=== PATIENT | female | born 1945 | race Hispanic/Latino ===

== ENCOUNTER 2017-10-04 06:26 | Day surgery (SDC) | payer MEDICARE, BC ==
[2017-10-04 06:59] VITALS: BMI 24.1
[2017-10-04] MEDS ORDERED: Propofol 10 mg/ml Inj (20 ML) ONE (08:06)
--- NOTE | 2017-10-04 08:12 | CP.SDSHP ---
Same Day Surgery H & P - History Proposed Procedure: colonoscopy Pre-Op Diagnosis: screen - Previous Medical/Surgical History Cardiac: Hypertension - Allergies Allergies: Allergies No Known Allergies Allergy (Verified 10/04/17 06:59) - Physical Exam Vital Signs: Vital Signs 10/04/17 07:32 Temperature 98.2 F Pulse Rate 80 Respiratory 20 Rate Blood Pressure 153/63 H O2 Sat by Pulse 99 Oximetry Mental Status: Alert & Oriented x3 Neuro: WNL Heart: WNL Lungs: WNL GI: WNL - {Optional Preform as Required} Abdomen: WNL - Impression Impression: screen Pt. Evaluated Today:Candidate for Anesthesia & Procedure: Yes - Date & Time Date: 10/04/17 Time: 08:12 Short Stay Discharge - Short Stay Discharge Admitting Diagnosis/Reason for Visit: SCREENING Disposition: HOME/ ROUTINE
[2017-10-04 09:40] VITALS: TEMP 97
[2017-10-04 09:49] VITALS: RESP 20
[2017-10-04 09:50] VITALS: O2SAT 98
[2017-10-04 09:54] VITALS: BP 125/68; PULSE 88
== END 2017-10-04 09:54 | disposition home or self-care (01) ==
LOC: C.ENDO 06:26
PROVIDERS: ATTEND Internal Medicine Gastroenterology
DX: Z12.11 Encounter for screening for malignant neoplasm of colon (principal); K57.30 Diverticulosis of large intestine without perforation or abscess without bleeding; D12.2 Benign neoplasm of ascending colon; D12.0 Benign neoplasm of cecum; D12.4 Benign neoplasm of descending colon; D12.5 Benign neoplasm of sigmoid colon; D12.8 Benign neoplasm of rectum; K64.8 Other hemorrhoids
CPT/HCPCS: 45380; 45385; 88305; J2704

== ENCOUNTER 2018-11-29 06:07 | Inpatient (IN) | payer MEDICARE, BC ==
[2018-11-29] MEDS ORDERED: Albuterol-Ipratrop 3 mg / 0.5 (3 ml) UD ONE ×2 (06:28→07:34)
[2018-11-29] MEDS ORDERED: Albuterol-Ipratrop 3 mg / 0.5 (3 ml) UD INH STA ×2 (06:28→07:24)
[2018-11-29 06:29] VITALS: BMI 27.4
[2018-11-29] MEDS ORDERED: cefTRIAXone IV 1 gm in Dextros 50 ML IV ONE (06:29)
[2018-11-29] MEDS ORDERED: Azithromycin 500 MG in Sodium Chloride 0.9% 250 ML IV STA (06:30)
--- NOTE | 2018-11-29 06:35 | C.PDOC ---
History Of Present Illness 73 year old female presents to the ER with a complaint of SOB and wheezing for the past 3 days. Patient used nebulizer machine at home, she gave herself three treatments, one amp each. She has a Hx of COPD, still smoking half a pack a day. Denies fever or chest pain. Time Seen by Provider: 11/29/18 06:20 Chief Complaint (Nursing): Respiratory Distress History Per: Patient History/Exam Limitations: no limitations Onset/Duration Of Symptoms: Days (3) Current Symptoms Are (Timing): Still Present Current Respiratory Medications: See Home Med List Associated Symptoms: Other (SOB, Wheezing). denies: Fever, Chest Pain Recent travel outside of the [place]: No Past Medical History Reviewed: Historical Data, Nursing Documentation, Vital Signs Vital Signs: Last Vital Signs Temp Pulse Resp 33 H 11/29/18 06:29 BP Pulse Ox - Medical History PMH: Arthritis, Colonic Polyps, COPD, Fibromyalgia, HTN, Hypothyroidism, Osteoporosis Denies: Fractures, TIA Surgical History: Denies: Endoscopy, Pacemaker - [facility] Procedures ANGIOPLASTY OF OTHER NON-CORONARY VESSEL(S) (11/26/14) CONTRAST PHLEBOGRAM-LEG (11/26/14) PROCEDURE ON SINGLE VESSEL (11/26/14) Family History: States: Unknown Family Hx - Social History Hx Alcohol Use: Yes Hx Substance Use: Yes Review Of Systems Constitutional: Negative for: Fever, Chills Cardiovascular: Negative for: Chest Pain, Palpitations Respiratory: Positive for: Shortness of Breath, Wheezing Gastrointestinal: Negative for: Nausea, Vomiting Genitourinary: Negative for: Dysuria, Hematuria Neurological: Negative for: Weakness, Numbness Physical Exam - Physical Exam Appears: Other (Moderate respiratory distress, Obese white female) Skin: Normal Color, Warm, Dry Head: Atraumatic, Normacephalic Eye(s): bilateral: Normal Inspection Oral Mucosa: Moist Neck: Normal, Supple Chest: Symmetrical, No Tenderness Cardiovascular: Rhythm Regular Respiratory: No Rales, Rhonchi (Scattered), Wheezing (Scattered), Other (Moderate air movement) Gastrointestinal/Abdominal: Soft, No Tenderness Back: No CVA Tenderness Extremity: Other (No edema of lower extremities) Neurological/Psych: Oriented x3, Normal Speech ED Course And Treatment - Laboratory Results Result Diagrams: 11/29/18 06:44 11/29/18 06:44 Lab Interpretation: Normal (not L shifted) ECG: Interpreted By Me ECG Rhythm: Sinus Tachycardia ECG Interpretation: Abnormal Rate From EC Pulse Ox Interpretation: Abnormal - Radiology CXR: Interpreted by Me CXR Interpretation: Yes: No Acute Disease Reevaluation Time: : Reassessment Condition: Improved - Physician Consult Information Outcome Of Conversation: 719 d/w eliu Rivas to admit Medical Decision Making Medical Decision Making: copd exacerbation Disposition Doctor Will See Patient In The: Hospital Counseled Patient/Family Regarding: Studies Performed, Diagnosis - Disposition Disposition: HOSPITALIZED Disposition Time: : Condition: FAIR Forms: [place] (Romansh) - Clinical Impression Clinical Impression: COPD exacerbation - Scribe Statement The provider has reviewed the documentation as recorded by the Scribe Marco A Ren All medical record entries made by the Scribe were at my direction and personally dictated by me. I have reviewed the chart and agree that the record accurately reflects my personal performance of the history, physical exam, medical decision making, and the department course for this patient. I have also personally directed, reviewed, and agree with the discharge instructions and disposition. Physician Patient Turnover Patient Signed Over To: Tra Bazzi Handoff Comments: follow-up workup and adm to Dr. Chatterjee
[2018-11-29 06:59] LABS: BASO # 0.1 K/uL (0.0-0.2); BASO % 0.6 % (0.0-2.0); EOS # 0.2 K/uL (0.0-0.7); EOS % 1.8 % (0.0-4.0); HEMOGLOBIN 13.5 g/dL (11.0-16.0); LYMPH # 1.5 K/uL (1.0-4.3); LYMPH % 13.9 % (20.0-40.0); MEAN CELL VOLUME 98.3 fL (81.0-99.0); MEAN CORPUSCULAR HEMOGLOBIN 33.3 pg (27.0-31.0); MEAN CORPUSCULAR HGB CONC 33.9 g/dL (33.0-37.0); MEAN PLATELET VOLUME 8.4 fL (7.2-11.7); MONO # 1.4 K/uL (0.0-0.8); MONO % 13.1 % (0.0-10.0); NEUT # 7.8 K/uL (1.8-7.0); NEUT % 70.6 % (50.0-75.0); RBC 4.05 Mil/uL (3.80-5.20); RED CELL DISTRIBUTION WIDTH 12.6 % (11.5-14.5)
[2018-11-29 07:07] LABS: ALB/GLOB RATIO 1.6 (1.0-2.1); ALBUMIN 4.4 g/dL (3.5-5.0); ALT/SGPT 22 U/L (9-52); AST/SGOT 25 U/L (14-36); BLOOD UREA NITROGEN 19 mg/dL (7-17); CALCIUM 8.9 mg/dl (8.6-10.4); GFR NON-AFRICAN AMERICAN > 60
[2018-11-29] MEDS ORDERED: Azithromycin 500mg/250ML NS 500 MG/250 ML BAG IVPB ONE (07:29)
[2018-11-29 07:51] LABS: PARTIAL THROMBOPLASTIN TIME 23 SECONDS (21-34); PROTHROMBIN TIME 11.1 SECONDS (9.7-12.2)
[2018-11-29 07:59] LABS: D DIMER < 200 ng/mlDDU (0-243)
--- NOTE | 2018-11-29 08:45 | CP.PCM.HP ---
History of Present Illness - History of Present Illness History of Present Illness: Chief complaint: Severe shortness of breath HPI: 73-year-old female with history of chronic lower back pain, cervical spinal surgery, history of rheumatoid arthritis, lupus, fibromyalgia, hypertension, history of COPD came to the emergency room with severe shortness of breath last night. Patient started having symptoms are mostly 3-4 days duration, initially with minimal cough, gradually got worse, cough with a thick yellow mucus production, yesterday started having more amount of mucus secretion with thick yellow discoloration. Patient did not have any hemoptysis. Last night the patient was not able to breathe well, she usually checks oxygen in the house, and last night the oxygen saturation went down to 83, and she called immediately ambulance, brought to the [facility] emergency room. In the emergency room patient was initially evaluated, placed on oxygen, nebulizer, and multiple episodes of nebulizer was given and a high flow oxygen was started. Currently patient is able to complete a sentence, she is feeling much better. Oxygen saturation is better. Cough is still noted. Wheezing present. She did not have any fever or chills. She recently has no sick exposure Patient still continues to smoke. 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 Almost 1 pack/day. Denies any alcohol. Patient lives with the and mostly functional and good functional capacity Surgical history includes: Patient had a cervical surgery spinal surgery recently, history of left iliac vein angioplasty. Also bilateral cataract surgery. Review of system: Patient is currently having no headache no visual symptoms. Complaining of increasing cough. Chest pain with cough noted. Mucus production present. Shortness of breath noted. No nausea no vomiting. Denies any leg swelling On examination: Vital signs reviewed Tachycardia noted. Chest bilateral diffuse rhonchi and wheezing noted, decreased air entry in the lower lung hdz noted tachycardia noted Abdomen soft nontender no pedal edema Labs reviewed Nonspecific. Chest x-ray hyperinflated lung hdz, no infiltration noted Blood gas analysis reviewed Assessment and recommendation: Patient is a 73-year-old female with a history of cervical spinal surgery, chronic lower back pain, history of rheumatoid arthritis lupus, fibromyalgia hypertension and COPD admitted now with acute exacerbation of COPD. Patient also has worsening bronchitis at this time. Failed outpatient treatment. Recommended high flow oxygen. Inhaled corticosteroid. Antibiotic. DVT and GI prophylaxis and will follow the patient. I educated the patient regarding the smoking cessation. Present on Admission - Present on Admission Any Indicators Present on Admission: No History of DVT/PE: No History of Uncontrolled Diabetes: No Urinary Catheter: No Decubitus Ulcer Present: No Past Patient History - Past Medical History & Family History Past Medical History?: Yes - Past Social History Smoking Status: Light Smoker < 10 Cigarettes Daily - CARDIAC Hx Hypertension: Yes Hx Pacemaker: No - PULMONARY Hx Chronic Obstructive Pulmonary Disease (COPD): Yes - NEUROLOGICAL Hx Transient Ischemic Attacks (TIA): No - HEENT Hx HEENT Problems: Yes Hx Cataracts: Yes Other/Comment: CHRONIC SINUSITIS - ENDOCRINE/METABOLIC Hx Hypothyroidism: Yes - HEMATOLOGICAL/ONCOLOGICAL Hx Blood Transfusions: No - INTEGUMENTARY Hx Dermatological Problems: Yes Hx Eczema: Yes - MUSCULOSKELETAL/RHEUMATOLOGICAL Hx Arthritis: Yes Hx Fractures: No Hx Osteoporosis: Yes - GASTROINTESTINAL Hx Gastrointestinal Disorders: Yes Hx Diverticulitis: Yes Hx Gastroesophageal Reflux: Yes - PSYCHIATRIC Hx Substance Use: Yes - SURGICAL HISTORY Hx Surgeries: Yes Hx Cataract Extraction: Yes (RIGHT AND LEFT) Hx Musculoskeletal Surgery: Yes (CERVICAL SPINAL FUSION 2014) Hx Orthopedic Surgery: Yes (LEFT ROTATOR CUFF FOR TEAR 2015) Other/Comment: 2 Titanium steel zoe toC3-7 area - ANESTHESIA Hx Anesthesia: Yes Hx Anesthesia Reactions: No Hx Malignant Hyperthermia: No Meds Allergies/Adverse Reactions: Allergies Allergy/AdvReac Type Severity Reaction Status Date / Time No Known Allergies Allergy Verified 10/04/17 06:59 Results - Vital Signs Recent Vital Signs: Last Vital Signs Temp 98.8 F 11/29/18 08:15 Pulse 128 H 11/29/18 08:15 Resp 20 11/29/18 08:15 BP 145/68 11/29/18 08:15 Pulse Ox 100 11/29/18 08:15 - Labs Result Diagrams: 11/29/18 06:44 11/29/18 06:44 Labs: Laboratory Results - last 24 hr 11/29/18 11/29/18 11/29/18 06:44 06:44 07:26 WBC 11.0 H RBC 4.05 Hgb 13.5 Hct 39.8 MCV 98.3 MCH 33.3 H MCHC 33.9 RDW 12.6 Plt Count 208 MPV 8.4 Neut % (Auto) 70.6 Lymph % (Auto) 13.9 L [place] % (Auto) 13.1 H Eos % (Auto) 1.8 Baso % (Auto) 0.6 Neut # (Auto) 7.8 H Lymph # (Auto) 1.5 [place] # (Auto) 1.4 H Eos # (Auto) 0.2 Baso # (Auto) 0.1 PT 11.1 INR 1.0 APTT 23 D-Dimer, Quantitative < 200 Sodium 135 Potassium 3.7 Chloride 101 Carbon Dioxide 26 Anion Gap 12 BUN 19 H Creatinine 0.7 Est GFR ( Amer) > 60 Est GFR (Non-Af Amer) > 60 Random Glucose 108 H Calcium 8.9 Total Bilirubin 0.4 AST 25 ALT 22 Alkaline Phosphatase 94 Troponin I < 0.0120 NT-Pro-B Natriuret Pep 78.0 Total Protein 7.1 Albumin 4.4 Globulin 2.7 Albumin/Globulin Ratio 1.6
[2018-11-29] MEDS ORDERED: Fluticasone-Vilanterol 100/25mcg Diskus INH PRN (08:55)
[2018-11-29] MEDS ORDERED: Home Med 1 UNIT (Meloxicam [Mobic] 15 MG) PO PRN (08:55)
[2018-11-29 08:58] LABS: SQUAMOUS EPITHIAL 11 /hpf (0-5); URINE BACTERIA RARE (<OCC); URINE BILIRUBIN NEGATIVE (NEGATIVE); URINE BLOOD NEGATIVE (NEGATIVE); URINE CLARITY Clear (Clear); URINE COLOR Yellow (YELLOW); URINE GLUCOSE (UA) NORMAL (Normal); URINE LEUKOCYTE ESTERASE TRACE Leu/uL (Negative); URINE PROTEIN NEGATIVE (NEGATIVE); URINE UROBILINOGEN NORMAL mg/dL (0.2-1.0)
--- NOTE | 2018-11-29 09:59 | RAD ---
Date of service: 11/29/2018 PROCEDURE: CHEST RADIOGRAPH, 1 VIEW HISTORY: SOB COMPARISON: 02/22/2015. FINDINGS: LUNGS: The lungs are well inflated and clear. PLEURA: No pneumothorax or pleural effusion. CARDIOVASCULAR: The heart is normal in size. No aortic atherosclerotic calcifications present. OSSEOUS STRUCTURES: Within normal limits for the patient's age. VISUALIZED UPPER ABDOMEN: Normal. OTHER FINDINGS: None. IMPRESSION: No active pulmonary disease.
[2018-11-29] MEDS: Pantoprazole 40 mg EC Tab PO SCH (10:57)
[2018-11-29] MEDS: Enoxaparin 40 mg Syringe SC SCH (10:58)
--- NOTE | 2018-11-29 11:06 | CT ---
Date of service: 11/29/2018 PROCEDURE: CT Chest without contrast HISTORY: PNA COMPARISON: Comparison chest dated 11/29/2018. Comparison also made with prior CT chest dated wall 03/31/2015. TECHNIQUE: Contiguous axial images were obtained through the chest without intravenous contrast enhancement. Sagittal and coronal reconstructions were performed. Radiation dose: Total exam DLP = 407.99 mGy-cm.. This CT exam was performed using one or more of the following dose reduction techniques: Automated exposure control, adjustment of the mA and/or kV according to patient size, and/or use of iterative reconstruction technique. FINDINGS: LUNGS: Redemonstrated is a small approximately 2.16 x 2.5 cm cavitary lesion with a small eccentrically located elliptical shaped nodule at measures approximately 8.5 x 6.5 cm mm. Findings consistent with an aspergilloma. This lesion is stable in appearance when compared with the prior study. Redemonstrated are centrilobular changes upper lobe predominance. Tiny calcified granuloma right lateral upper lobe . Linear atelectasis/scarring seen within the lingular region along the inferior aspect of the left major fissure. Minor scarring also noted in both lung bases and right middle lobe.. MEDIASTINUM: Unremarkable thoracic aorta. No aneurysm. Normal sized heart. Main pulmonary artery unremarkable. No vascular congestion. No lymphadenopathy. No aortic atherosclerotic calcification. Redemonstrated is lobular appearing right lobe of the thyroid gland with substernal extension. Internal areas of hyperdense and hypo attenuation are present with scattered calcifications. Follow-up thyroid ultrasound recommended. There is a small hiatal hernia. PLEURA: No pleural fluid. No pneumothorax. BONES: Mild multilevel degenerative spondylosis of the thoracic spine. No acute compression fractures no retropulsed fragments. . UPPER ABDOMEN: Redemonstrated is an approximately 2.75 cm x 2.6 cm slightly hyperdense appearing presumed exophytic cyst arising from the anterolateral anterior cortex mid pole right kidney with Hounsfield units ranging from the mid single digits to upper teens. Recommend follow-up thyroid ultrasound. OTHER FINDINGS: None. IMPRESSION: Redemonstrated is a right upper lobe cavitary lesion that contains an internal eccentric located elliptical shaped nodule and appears essentially unchanged in appearance from prior study.. Small calcified granuloma right lateral upper lobe. Centrilobular emphysematous changes upper lobe predominance. Scarring/atelectatic changes both lung bases including the lingular and middle lobe regions. Slightly hyperdense appearing exophytic cyst right kidney. Recommend follow-up thyroid ultrasound further evaluation. Enlarged lobular right lobe thyroid gland with areas of increased and decreased attenuation with scattered calcifications. Thyroid ultrasound follow-up recommended.
[2018-11-29] MEDS: Levothyroxine 25 MCG TAB PO SCH (13:28)
[2018-11-29] MEDS: MethylPREDNISolone 40 mg Vial IV SCH ×2 (13:53→21:16)
[2018-11-29] MEDS ORDERED: methylPREDNISolone 40 MG in Sodium Chloride 0.9% 100 ML IVPB SCH (14:00)
[2018-11-30] MEDS: Albuterol-Ipratrop 3 mg / 0.5 (3 ml) UD IH PRN ×2 (04:14→19:58)
[2018-11-30] MEDS: MethylPREDNISolone 40 mg Vial IV SCH ×3 (05:16→21:27)
[2018-11-30] MEDS: Levothyroxine 25 MCG TAB PO SCH (06:08)
[2018-11-30] MEDS: cefTRIAXone IV 1 gm in Dextros 50 ML IVPB SCH (08:32)
--- NOTE | 2018-11-30 10:20 | CARD ---
APPROVED REPORT Date of service: 11/29/2018 EKG Measurement Heart [id number] <Conclusion> Sinus tachycardia Otherwise normal ECG
[2018-11-30] MEDS: Pantoprazole 40 mg EC Tab PO SCH (10:23)
[2018-11-30] MEDS: Enoxaparin 40 mg Syringe SC SCH (10:23)
[2018-11-30] MEDS: Fluticasone-Vilanterol 200/25mcg Diskus INH SCH (10:37)
[2018-11-30] MEDS: Tiotropium 18 mcg Cap For Inhalation INH SCH (10:38)
[2018-11-30] MEDS: Azithromycin 500 MG in Sodium Chloride 0.9% 250 ML IVPB SCH (11:18)
--- NOTE | 2018-11-30 21:14 | CP.PCM.PN ---
Subjective - Date & Time of Evaluation Date of Evaluation: 11/30/18 Time of Evaluation: 21:11 - Subjective Subjective: Patient this morning was doing well. But she is still having continues to have some cough. Some shortness of breath noted. Also still using high flow FiO2. Patient is also using accessory muscle on exertion. Shortness of breath present. Thick yellow mucus production noted. Sputum culture was sent. Vital signs noted. Hypoxia present. Chest good air entry. But on the lower lung hdz no air entry noted Regular heart sounds noted Abdomen soft. Nontender. 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 Also patient has a emphysematous lung changes. No evidence of pneumonia Assessment and recommendation: 73-year-old female with a history of hypertension, lupus lung disease, history of lupus, osteoarthritis. History of cervical spinal surgery. COPD Chronic smoker. Number admitted with acute exacerbation of COPD. Repeat labs tomorrow. DVT GI prophylaxis. I discussed with the patient regarding the prognosis. Patient denies to have influenza and pneumococcal vaccine. Objective - Vital Signs/Intake and Output Vital Signs (last 24 hours): Temp Pulse Resp BP Pulse Ox 98.5 F 101 H 20 160/86 H 99 11/30/18 15:05 11/30/18 15:05 11/30/18 20:01 11/30/18 15:05 11/30/18 15:05 - Medications Medications: Current Medications Albuterol/Ipratropium (Duoneb 3 Mg/0.5 Mg (3 Ml) Ud) 3 ml IH RQ6 PRN PRN Reason: Wheezing Last Admin: 11/30/18 19:58 Dose: 3 ml Enoxaparin Sodium (Lovenox) 40 mg SC DAILY [facility] Last Admin: 11/30/18 10:23 Dose: 40 mg Fluticasone/Vilanterol (Breo Ellipta 200-25 Mcg Inh) 1 puff INH RQD [facility] Last Admin: 11/30/18 10:37 Dose: 1 puff Home Med (Meloxicam [Mobic]) 15 mg PO DAILY PRN PRN Reason: Pain, moderate (4-7) Hydrochlorothiazide (Hydrodiuril) 25 mg PO DAILY [facility] Last Admin: 11/30/18 10:29 Dose: 25 mg Hydroxychloroquine Sulfate (Plaquenil) 200 mg PO BID [facility]; Protocol Last Admin: 11/30/18 17:51 Dose: 200 mg Azithromycin 500 mg/ Sodium (Chloride) 250 mls @ 250 mls/hr IVPB DAILY [facility]; Protocol Last Admin: 11/30/18 11:18 Dose: 250 mls/hr Ceftriaxone Sodium (Rocephin Iv 1 Gm Duplex) 50 mls @ 100 mls/hr IVPB Q24H [facility]; Protocol Last Admin: 11/30/18 08:32 Dose: 100 mls/hr Levothyroxine Sodium (Synthroid) 25 mcg PO DAILY@0630 [facility] Last Admin: 11/30/18 06:08 Dose: 25 mcg Methylprednisolone (Solu-Medrol) 40 mg IV Q8H [facility] Last Admin: 11/30/18 13:10 Dose: 40 mg Pantoprazole Sodium (Protonix Ec Tab) 40 mg PO DAILY [facility] Last Admin: 11/30/18 10:23 Dose: 40 mg Tiotropium [place] (Spiriva) 18 mcg INH RQ24 [facility] Last Admin: 11/30/18 10:38 Dose: 18 mcg - Labs Labs: 11/29/18 06:44 11/29/18 06:44 PT 11.1 SECONDS (9.7-12.2) 11/29/18 07:26 INR 1.0 11/29/18 07:26 APTT 23 SECONDS (21-34) 11/29/18 07:26
[2018-12-01] MEDS: Albuterol-Ipratrop 3 mg / 0.5 (3 ml) UD IH PRN ×3 (03:31→13:25)
[2018-12-01] MEDS: MethylPREDNISolone 40 mg Vial IV SCH ×2 (05:50→21:48)
[2018-12-01] MEDS: Levothyroxine 25 MCG TAB PO SCH (05:50)
[2018-12-01] MEDS: Fluticasone-Vilanterol 200/25mcg Diskus INH SCH (07:35)
[2018-12-01] MEDS: Tiotropium 18 mcg Cap For Inhalation INH SCH (07:35)
[2018-12-01 08:09] LABS: BASO % 0.1 % (0.0-2.0); HEMOGLOBIN 12.4 g/dL (11.0-16.0); LYMPH # 0.6 K/uL (1.0-4.3); LYMPH % 4.8 % (20.0-40.0); MEAN CELL VOLUME 97.2 fL (81.0-99.0); MEAN CORPUSCULAR HGB CONC 33.9 g/dL (33.0-37.0); MEAN PLATELET VOLUME 8.3 fL (7.2-11.7); MONO # 0.9 K/uL (0.0-0.8); NEUT # 11.8 K/uL (1.8-7.0); NEUT % 88.1 % (50.0-75.0); PLATELET COUNT 231 K/uL (130-400); RBC 3.75 Mil/uL (3.80-5.20); RED CELL DISTRIBUTION WIDTH 12.4 % (11.5-14.5); WHITE BLOOD COUNT 13.4 K/uL (4.8-10.8)
[2018-12-01 08:23] LABS: ALB/GLOB RATIO 1.5 (1.0-2.1); ALBUMIN 3.9 g/dL (3.5-5.0); ALT/SGPT 26 U/L (9-52); AST/SGOT 29 U/L (14-36); BLOOD UREA NITROGEN 35 mg/dL (7-17); CALCIUM 8.5 mg/dl (8.6-10.4); GFR NON-AFRICAN AMERICAN > 60
[2018-12-01 09:15] LABS: LYMPHOCYTE 2 % (20-40); MONOCYTE 5 % (0-10); NEUTROPHIL 93 % (50-75); TOTAL CELLS COUNTED 100
[2018-12-01 09:16] LABS: PLATELET ESTIMATE NORMAL (NORMAL)
[2018-12-01] MEDS: cefTRIAXone IV 1 gm in Dextros 50 ML IVPB SCH (09:27)
[2018-12-01] MEDS: Enoxaparin 40 mg Syringe SC SCH (09:41)
[2018-12-01] MEDS: Pantoprazole 40 mg EC Tab PO SCH (10:00)
[2018-12-01] MEDS: Azithromycin 500 MG in Sodium Chloride 0.9% 250 ML IVPB SCH (12:06)
--- NOTE | 2018-12-01 13:39 | CP.PCM.PN ---
Subjective - Date & Time of Evaluation Date of Evaluation: 12/01/18 Time of Evaluation: 13:38 - Subjective Subjective: Mucus noted. Thick yellow mucus present. No fever. Chills present Labs noted. Vital signs reviewed Patient is currently on high flow FiO2 50%. Assessment and recommendation: 73-year-old female with a history of peripheral vascular disease. COPD. COPD exacerbation on antibiotic bronchodilators corticosteroid Objective - Vital Signs/Intake and Output Vital Signs (last 24 hours): Temp Pulse Resp BP Pulse Ox 98.5 F 95 H 20 151/84 H 96 12/01/18 07:00 12/01/18 07:00 12/01/18 08:00 12/01/18 07:00 12/01/18 07:00 - Medications Medications: Current Medications Albuterol/Ipratropium (Duoneb 3 Mg/0.5 Mg (3 Ml) Ud) 3 ml IH RQ6 PRN PRN Reason: Wheezing Last Admin: 12/01/18 07:35 Dose: 3 ml Enoxaparin Sodium (Lovenox) 40 mg SC DAILY [facility] Last Admin: 12/01/18 09:41 Dose: 40 mg Fluticasone/Vilanterol (Breo Ellipta 200-25 Mcg Inh) 1 puff INH RQD [facility] Last Admin: 12/01/18 07:35 Dose: 1 puff Home Med (Meloxicam [Mobic]) 15 mg PO DAILY PRN PRN Reason: Pain, moderate (4-7) Hydrochlorothiazide (Hydrodiuril) 25 mg PO DAILY [facility] Last Admin: 12/01/18 09:41 Dose: 25 mg Hydroxychloroquine Sulfate (Plaquenil) 200 mg PO BID [facility]; Protocol Last Admin: 12/01/18 09:40 Dose: 200 mg Azithromycin 500 mg/ Sodium (Chloride) 250 mls @ 250 mls/hr IVPB DAILY [facility]; Protocol Last Admin: 12/01/18 12:06 Dose: 250 mls/hr Ceftriaxone Sodium (Rocephin Iv 1 Gm Duplex) 50 mls @ 100 mls/hr IVPB Q24H [facility]; Protocol Last Admin: 12/01/18 09:27 Dose: 100 mls/hr Levothyroxine Sodium (Synthroid) 25 mcg PO DAILY@0630 [facility] Last Admin: 12/01/18 05:50 Dose: 25 mcg Methylprednisolone (Solu-Medrol) 40 mg IV Q8H [facility] Last Admin: 12/01/18 05:50 Dose: 40 mg Pantoprazole Sodium (Protonix Ec Tab) 40 mg PO DAILY [facility] Last Admin: 12/01/18 10:00 Dose: 40 mg Tiotropium [place] (Spiriva) 18 mcg INH RQ24 [facility] Last Admin: 12/01/18 07:35 Dose: 18 mcg - Labs Labs: 12/01/18 07:50 12/01/18 07:50 PT 11.1 SECONDS (9.7-12.2) 11/29/18 07:26 INR 1.0 11/29/18 07:26 APTT 23 SECONDS (21-34) 11/29/18 07:26
[2018-12-01] MEDS: Albuterol-Ipratrop 3 mg / 0.5 (3 ml) UD IH SCH (19:44)
[2018-12-01] MEDS ORDERED: MethylPREDNISolone 40 mg Vial IV SCH (22:00)
[2018-12-02] MEDS: Albuterol-Ipratrop 3 mg / 0.5 (3 ml) UD IH SCH ×4 (01:30→19:10)
[2018-12-02] MEDS: Levothyroxine 25 MCG TAB PO SCH (05:35)
[2018-12-02] MEDS: MethylPREDNISolone 40 mg Vial IV SCH ×3 (05:43→22:03)
[2018-12-02] MEDS: Fluticasone-Vilanterol 200/25mcg Diskus INH SCH (07:37)
[2018-12-02] MEDS: cefTRIAXone IV 1 gm in Dextros 50 ML IVPB SCH (07:43)
[2018-12-02] MEDS: Pantoprazole 40 mg EC Tab PO SCH (09:42)
[2018-12-02] MEDS: Enoxaparin 40 mg Syringe SC SCH (09:42)
[2018-12-02] MEDS: Azithromycin 500 MG in Sodium Chloride 0.9% 250 ML IVPB SCH (09:44)
[2018-12-02] MEDS: Nystatin 100,000 Units/ml Oral Susp 5 ml UD PO SCH (21:49)
--- NOTE | 2018-12-02 22:28 | CP.PCM.PN ---
Subjective - Date & Time of Evaluation Date of Evaluation: 12/02/18 Time of Evaluation: 22:26 - Subjective Subjective: Patient is still having some cough. Shortness of breath on exertion noted. Tachycardia also noted. An FiO2 reduced to 45% now. Flow also reduced. Saturation is 9493%. On examination: Wheezing in the lungs noted, decreased in lung air entry on the left side. Heart sounds are regular. Edema 1+ noted. Assessment: 73-year-old female admitted to the hospital with acute exacerbation of COPD Still not improving. Bronchodilators to be continued with the steroid as well as antibiotic. Reduce the oxygen. Repeat labs tomorrow. Blood gas analysis. Patient may need home oxygen. DVT and GI prophylaxis Objective - Vital Signs/Intake and Output Vital Signs (last 24 hours): Temp Pulse Resp BP Pulse Ox 98.4 F 82 22 146/68 96 12/02/18 15:00 12/02/18 16:00 12/02/18 16:45 12/02/18 15:00 12/02/18 15:00 - Medications Medications: Current Medications Albuterol/Ipratropium (Duoneb 3 Mg/0.5 Mg (3 Ml) Ud) 3 ml IH RQ6 [facility] Last Admin: 12/02/18 19:10 Dose: 3 ml Enoxaparin Sodium (Lovenox) 40 mg SC DAILY [facility] Last Admin: 12/02/18 09:42 Dose: 40 mg Fluticasone/Vilanterol (Breo Ellipta 200-25 Mcg Inh) 1 puff INH RQD [facility] Last Admin: 12/02/18 07:37 Dose: 1 puff Hydrochlorothiazide (Hydrodiuril) 25 mg PO DAILY [facility] Last Admin: 12/02/18 09:44 Dose: 25 mg Hydroxychloroquine Sulfate (Plaquenil) 200 mg PO BID [facility]; Protocol Last Admin: 12/02/18 17:40 Dose: 200 mg Azithromycin 500 mg/ Sodium (Chloride) 250 mls @ 250 mls/hr IVPB DAILY [facility]; Protocol Last Admin: 12/02/18 09:44 Dose: 250 mls/hr Ceftriaxone Sodium (Rocephin Iv 1 Gm Duplex) 50 mls @ 100 mls/hr IVPB Q24H [facility]; Protocol Last Admin: 12/02/18 07:43 Dose: 100 mls/hr Levothyroxine Sodium (Synthroid) 25 mcg PO DAILY@0630 [facility] Last Admin: 12/02/18 05:35 Dose: 25 mcg Methylprednisolone (Solu-Medrol) 40 mg IV Q8 [facility] Last Admin: 12/02/18 22:03 Dose: 40 mg Nystatin (Nystatin Oral Susp) 5 ml PO QID [facility] Last Admin: 12/02/18 21:49 Dose: Not Given Pantoprazole Sodium (Protonix Ec Tab) 40 mg PO DAILY [facility] Last Admin: 12/02/18 09:42 Dose: 40 mg Tiotropium [place] (Spiriva) 18 mcg INH RQ24 [facility] Last Admin: 12/01/18 07:35 Dose: 18 mcg - Labs Labs: 12/01/18 07:50 12/01/18 07:50 PT 11.1 SECONDS (9.7-12.2) 11/29/18 07:26 INR 1.0 11/29/18 07:26 APTT 23 SECONDS (21-34) 11/29/18 07:26
[2018-12-03] MEDS: Albuterol-Ipratrop 3 mg / 0.5 (3 ml) UD IH SCH ×4 (01:08→19:10)
[2018-12-03] MEDS: Levothyroxine 25 MCG TAB PO SCH (05:46)
[2018-12-03] MEDS: Tiotropium 18 mcg Cap For Inhalation INH SCH (07:40)
[2018-12-03] MEDS: Fluticasone-Vilanterol 200/25mcg Diskus INH SCH (07:40)
[2018-12-03 07:41] LABS: BASO % 0.3 % (0.0-2.0); LYMPH # 0.9 K/uL (1.0-4.3); LYMPH % 5.9 % (20.0-40.0); MEAN CELL VOLUME 96.4 fL (81.0-99.0); MEAN CORPUSCULAR HEMOGLOBIN 33.3 pg (27.0-31.0); MEAN CORPUSCULAR HGB CONC 34.5 g/dL (33.0-37.0); MEAN PLATELET VOLUME 8.5 fL (7.2-11.7); MONO # 1.3 K/uL (0.0-0.8); MONO % 8.5 % (0.0-10.0); NEUT # 12.8 K/uL (1.8-7.0); NEUT % 85.3 % (50.0-75.0); PLATELET COUNT 239 K/uL (130-400); RED CELL DISTRIBUTION WIDTH 12.1 % (11.5-14.5)
[2018-12-03 07:59] LABS: ALB/GLOB RATIO 1.6 (1.0-2.1); ALT/SGPT 29 U/L (9-52); AST/SGOT 26 U/L (14-36); BLOOD UREA NITROGEN 31 mg/dL (7-17); CALCIUM 8.8 mg/dl (8.6-10.4); GFR NON-AFRICAN AMERICAN > 60
[2018-12-03] MEDS: cefTRIAXone IV 1 gm in Dextros 50 ML IVPB SCH (08:44)
[2018-12-03 08:52] LABS: LYMPHOCYTE 9 % (20-40); TOTAL CELLS COUNTED 100
[2018-12-03 08:53] LABS: MONOCYTE 10 % (0-10); NEUTROPHIL 81 % (50-75); PLATELET ESTIMATE NORMAL (NORMAL)
[2018-12-03] MEDS: Azithromycin 500 MG in Sodium Chloride 0.9% 250 ML IVPB SCH (09:48)
[2018-12-03] MEDS: Enoxaparin 40 mg Syringe SC SCH (09:49)
[2018-12-03] MEDS: MethylPREDNISolone 40 mg Vial IV SCH ×2 (09:49→21:42)
[2018-12-03] MEDS: Pantoprazole 40 mg EC Tab PO SCH (09:49)
[2018-12-03] MEDS: Nystatin 100,000 Units/ml Oral Susp 5 ml UD PO SCH ×2 (10:00→14:00)
[2018-12-03 15:37] VITALS: RESP 20
--- NOTE | 2018-12-03 22:56 | CP.PCM.PN ---
Subjective - Date & Time of Evaluation Date of Evaluation: 12/03/18 Time of Evaluation: 22:55 - Subjective Subjective: Patient still having some chest tightness. Coughing present. Mostly dry. This morning patient was on high flow FiO2. But in the evening oxygen was changed into 3 L nasal cannula. Tolerating. No chest pain or fever On examination: Saturation is 93%. Chest tube expiratory wheezing noted Edema in the legs 1+ noted Assessment: 73-year-old female admitted to the hospital with acute exacerbation of COPD. On antibiotic. Tapering the corticosteroid. Physical therapy. Patient may need home oxygen. Room air oxygen saturation is at this time 88%. We will repeat the oxygen and room air tomorrow. Patient is an active smoker, still actively smoking. Discussed about quitting smoking and will follow the patient Objective - Vital Signs/Intake and Output Vital Signs (last 24 hours): Temp Pulse Resp BP Pulse Ox 98.5 F 105 H 20 178/80 H 95 12/03/18 15:36 12/03/18 16:00 12/03/18 15:36 12/03/18 15:36 12/03/18 15:36 - Medications Medications: Current Medications Albuterol/Ipratropium (Duoneb 3 Mg/0.5 Mg (3 Ml) Ud) 3 ml IH RQ6 [facility] Last Admin: 12/03/18 19:10 Dose: 3 ml Clotrimazole (Mycelex Fatmata) 10 mg MT 5XD [facility] Stop: 12/17/18 17:01 Last Admin: 12/03/18 21:42 Dose: 10 mg Enoxaparin Sodium (Lovenox) 40 mg SC DAILY [facility] Last Admin: 12/03/18 09:49 Dose: 40 mg Fluticasone/Vilanterol (Breo Ellipta 200-25 Mcg Inh) 1 puff INH RQD [facility] Last Admin: 12/03/18 07:40 Dose: 1 puff Hydrochlorothiazide (Hydrodiuril) 25 mg PO DAILY [facility] Last Admin: 12/03/18 09:49 Dose: 25 mg Hydroxychloroquine Sulfate (Plaquenil) 200 mg PO BID [facility]; Protocol Last Admin: 12/03/18 18:53 Dose: 200 mg Azithromycin 500 mg/ Sodium (Chloride) 250 mls @ 250 mls/hr IVPB DAILY [facility]; Protocol Last Admin: 12/03/18 09:48 Dose: 250 mls/hr Ceftriaxone Sodium (Rocephin Iv 1 Gm Duplex) 50 mls @ 100 mls/hr IVPB Q24H [facility]; Protocol Last Admin: 12/03/18 08:44 Dose: 100 mls/hr Levothyroxine Sodium (Synthroid) 25 mcg PO DAILY@0630 [facility] Last Admin: 12/03/18 05:46 Dose: 25 mcg Pantoprazole Sodium (Protonix Ec Tab) 40 mg PO DAILY [facility] Last Admin: 12/03/18 09:49 Dose: 40 mg Tiotropium [place] (Spiriva) 18 mcg INH RQ24 [facility] Last Admin: 12/03/18 07:40 Dose: 18 mcg - Labs Labs: 12/03/18 07:33 12/03/18 07:33 PT 11.1 SECONDS (9.7-12.2) 11/29/18 07:26 INR 1.0 11/29/18 07:26 APTT 23 SECONDS (21-34) 11/29/18 07:26
[2018-12-04] MEDS: Albuterol-Ipratrop 3 mg / 0.5 (3 ml) UD IH SCH ×4 (01:33→19:25)
[2018-12-04] MEDS: Levothyroxine 25 MCG TAB PO SCH (06:14)
[2018-12-04] MEDS: Fluticasone-Vilanterol 200/25mcg Diskus INH SCH (07:14)
[2018-12-04] MEDS: Tiotropium 18 mcg Cap For Inhalation INH SCH (07:14)
[2018-12-04 08:33] LABS: BASO # 0.1 K/uL (0.0-0.2); BASO % 0.4 % (0.0-2.0); HEMOGLOBIN 13.6 g/dL (11.0-16.0); LYMPH % 6.3 % (20.0-40.0); MEAN CELL VOLUME 96.1 fL (81.0-99.0); MEAN CORPUSCULAR HEMOGLOBIN 33.5 pg (27.0-31.0); MEAN CORPUSCULAR HGB CONC 34.8 g/dL (33.0-37.0); MEAN PLATELET VOLUME 8.2 fL (7.2-11.7); MONO # 1.3 K/uL (0.0-0.8); MONO % 8.5 % (0.0-10.0); NEUT # 13.1 K/uL (1.8-7.0); NEUT % 84.8 % (50.0-75.0); PLATELET COUNT 256 K/uL (130-400); RBC 4.08 Mil/uL (3.80-5.20); RED CELL DISTRIBUTION WIDTH 12.4 % (11.5-14.5); WHITE BLOOD COUNT 15.5 K/uL (4.8-10.8)
[2018-12-04 08:58] LABS: ALB/GLOB RATIO 1.6 (1.0-2.1); ALBUMIN 4.1 g/dL (3.5-5.0); ALT/SGPT 25 U/L (9-52); AST/SGOT 30 U/L (14-36); BLOOD UREA NITROGEN 29 mg/dL (7-17); CALCIUM 9.1 mg/dl (8.6-10.4); GFR NON-AFRICAN AMERICAN > 60
[2018-12-04] MEDS: Enoxaparin 40 mg Syringe SC SCH (09:39)
[2018-12-04] MEDS: Azithromycin 500 MG in Sodium Chloride 0.9% 250 ML IVPB SCH (09:40)
[2018-12-04] MEDS: Pantoprazole 40 mg EC Tab PO SCH (09:41)
[2018-12-04 09:42] LABS: LYMPHOCYTE 7 % (20-40); MONOCYTE 8 % (0-10); NEUTROPHIL 84 % (50-75); PLATELET ESTIMATE NORMAL (NORMAL); REACTIVE LYMPHOCYTES 1 % (0-0); TOTAL CELLS COUNTED 100
[2018-12-04 09:43] LABS: LARGE PLATELETS PRESENT
[2018-12-04] MEDS: cefTRIAXone IV 1 gm in Dextros 50 ML IVPB SCH (09:51)
[2018-12-04] MEDS: MethylPREDNISolone 40 mg Vial IV SCH ×2 (11:00→21:51)
--- NOTE | 2018-12-04 11:04 | RAD ---
Date of service: 12/03/2018 HISTORY: pna COMPARISON: Portable chest 11/29/2018. TECHNIQUE: Chest PA and lateral FINDINGS: LUNGS: No active pulmonary disease. PLEURA: No significant pleural effusion identified. No pneumothorax apparent. CARDIOVASCULAR: No aortic atherosclerotic calcification present. Normal cardiac size. No pulmonary vascular congestion. OSSEOUS STRUCTURES: Minimal capture of posterior spinal fusion hardware identified at at least the C6 vertebral body. VISUALIZED UPPER ABDOMEN: Normal. OTHER FINDINGS: None. IMPRESSION: No interval acute cardiopulmonary disease. Interval cervical spine fusion hardware is identified at the inferior cervical spine minimally.
--- NOTE | 2018-12-04 11:38 | US ---
Date of service: 12/03/2018 HISTORY: nodules on CT TECHNIQUE: Sonographic evaluation of the thyroid gland. COMPARISON: CT chest 11/29/2018 FINDINGS: RIGHT LOBE: Measures 7.1 x 3.2 x 4.2 cm. Heterogeneous echotexture. Nodules: Multiple nodules identified. Upper pole right lobe, peripherally calcified nodule, 6 x 6 x 7 mm. Mid right lobe, echogenic solid nodule, 1.8 x 1.4 x 2.0 cm. Mid lobe, isoechoic solid nodule, 1.6 x 1.3 x 2.2 cm. Lower pole heterogeneous hypoechoic solid nodule, 2.2 x 2.1 x 1.9 cm. Upper pole heterogeneous hypoechoic solid nodule, 0.9 x 1.2 x 1.5 cm. LEFT LOBE: The patient is reportedly status post left hemithyroidectomy. In the left thyroid bed there is a smooth solid ovoid mass measuring 1.4 x 1.5 x 2.3 cm. Uncertain significance. This could represent a nodule within residual thyroid tissue. Rule out parathyroid mass. Please note that correlating with CT examination, a solid nodule in the left thyroid bed is evident on CT examination of 2018 and of 03/31/2015, without appreciable interval change on CT. ISTHMUS: Measures 0.3 cm. Normal echotexture and flow. Nodules: None OTHER FINDINGS: None . IMPRESSION: Multinodular thyroid. By [place] [employer] criteria, several nodules in the right lobe should be considered for ultrasound-guided biopsy. In addition, there is a nodule in the left thyroid bed, status post left hemithyroidectomy, which appears to be stable over a period of 4 years. Nevertheless, consideration should be given to percutaneous biopsy.
[2018-12-05] MEDS: Albuterol-Ipratrop 3 mg / 0.5 (3 ml) UD IH SCH ×3 (01:28→13:35)
[2018-12-05] MEDS: Levothyroxine 25 MCG TAB PO SCH (06:19)
[2018-12-05] MEDS: cefTRIAXone IV 1 gm in Dextros 50 ML IVPB SCH (08:30)
[2018-12-05] MEDS: MethylPREDNISolone 40 mg Vial IV SCH (09:52)
[2018-12-05] MEDS: Azithromycin 500 MG in Sodium Chloride 0.9% 250 ML IVPB SCH (09:52)
[2018-12-05] MEDS: Pantoprazole 40 mg EC Tab PO SCH (09:53)
[2018-12-05] MEDS: Enoxaparin 40 mg Syringe SC SCH (10:05)
[2018-12-05] MEDS: Fluticasone-Vilanterol 200/25mcg Diskus INH SCH (13:35)
[2018-12-05] MEDS: Tiotropium 18 mcg Cap For Inhalation INH SCH (13:36)
[2018-12-05 17:28] VITALS: BP 148/76; PULSE 96; TEMP 98.3; O2SAT 98
== END 2018-12-05 17:25 | disposition home health service (06) | DRG 192 ==
LOC: C.ER 06:07 → C.9E 07:24 → C.6T 08:07 → OBSVTOIN 12-02 12:04
PROVIDERS: ADMIT Internal Medicine; ATTEND Internal Medicine
DX: J44.1 Chronic obstructive pulmonary disease with (acute) exacerbation (principal); R09.02 Hypoxemia; J32.9 Chronic sinusitis, unspecified; R00.0 Tachycardia, unspecified; M06.9 Rheumatoid arthritis, unspecified; I73.9 Peripheral vascular disease, unspecified; E89.0 Postprocedural hypothyroidism; I10 Essential (primary) hypertension; M79.7 Fibromyalgia; M32.9 Systemic lupus erythematosus, unspecified; F17.210 Nicotine dependence, cigarettes, uncomplicated; K21.9 Gastro-esophageal reflux disease without esophagitis; I73.00 Raynaud's syndrome without gangrene; L30.9 Dermatitis, unspecified; M81.0 Age-related osteoporosis without current pathological fracture; M54.5 Low back pain; G89.29 Other chronic pain; Z98.1 Arthrodesis status; Z98.42 Cataract extraction status, left eye; Z86.010 Personal history of colon polyps; Z98.41 Cataract extraction status, right eye